=== PATIENT | male | born 1985 | race Hispanic/Latino ===

== ENCOUNTER 2017-03-23 22:04 | Emergency (ER) | payer OTHER ==
[2017-03-23] MEDS ORDERED: Bacitracin Zinc 1 Packet ONE (22:44)
[2017-03-23] MEDS ORDERED: HYDROcodone/Acetaminophen 10/325 mg Tablet ONE (22:44)
== END 2017-03-23 23:22 | disposition home or self-care (01) ==
LOC: NAV ERS 22:04
DX: T24.201A Burn of second degree of unspecified site of right lower limb, except ankle and foot, initial encounter (principal); T31.0 Burns involving less than 10% of body surface; E03.9 Hypothyroidism, unspecified; E78.5 Hyperlipidemia, unspecified; I10 Essential (primary) hypertension; J45.909 Unspecified asthma, uncomplicated; F41.9 Anxiety disorder, unspecified; F32.9 Major depressive disorder, single episode, unspecified; F17.210 Nicotine dependence, cigarettes, uncomplicated; X08.8XXA Exposure to other specified smoke, fire and flames, initial encounter
CPT/HCPCS: 16020

== ENCOUNTER 2017-03-24 17:29 | Emergency (ER) | payer OTHER | END 2017-03-24 17:55 | disposition home or self-care (01) | LOC: NAV ERS 17:29 | DX: T24.201A Burn of second degree of unspecified site of right lower limb, except ankle and foot, initial encounter (principal); E03.9 Hypothyroidism, unspecified; E78.5 Hyperlipidemia, unspecified; I10 Essential (primary) hypertension; J44.9 Chronic obstructive pulmonary disease, unspecified; F41.9 Anxiety disorder, unspecified; F32.9 Major depressive disorder, single episode, unspecified; Z87.891 Personal history of nicotine dependence; Z79.899 Other long term (current) drug therapy; X58.XXXA Exposure to other specified factors, initial encounter ==

== ENCOUNTER 2020-03-26 20:30 | Emergency (ER) | payer BC, OTHER ==
[2020-03-26] MEDS ORDERED: Bacitracin 1 PK ONE (20:45)
[2020-03-26] MEDS ORDERED: Adacel (T-DAP) 0.5 ML SYRINGE ONE (20:45)
== END 2020-03-26 21:05 | disposition home or self-care (01) ==
LOC: NAV ERS 20:30
DX: S61.501A Unspecified open wound of right wrist, initial encounter (principal); E03.9 Hypothyroidism, unspecified; E78.5 Hyperlipidemia, unspecified; E78.00 Pure hypercholesterolemia, unspecified; I10 Essential (primary) hypertension; J45.909 Unspecified asthma, uncomplicated; F41.9 Anxiety disorder, unspecified; F32.9 Major depressive disorder, single episode, unspecified; Z87.891 Personal history of nicotine dependence; W25.XXXA Contact with sharp glass, initial encounter
CPT/HCPCS: 90471; 90715